=== PATIENT | male | born 1980 | race Caucasian/White ===

== ENCOUNTER 2016-08-08 11:08 | Day surgery (SDC) | payer SELFPAY ==
[~2016-08-08] VITALS: Ht 177.8 cm; Wt 79.3 kg
[~2016-08-08 11:08] MED LIST: LYRICA50 MG PO
[2016-08-08 11:33] VITALS: BP 111/73
[2016-08-08 15:02] VITALS: BP 127/82
[2016-08-08 15:50] VITALS: BP 126/75
== END 2016-08-08 16:02 | disposition home or self-care (01) ==
LOC: SDC 11:08
DX: M51.16 Intervertebral disc disorders with radiculopathy, lumbar region (principal); F17.210 Nicotine dependence, cigarettes, uncomplicated
CPT/HCPCS: 72020; 76000; J0131; J0330; J0690; J1100; J1170; J2250; J2405; J2710; J2930; J3010; S0020